=== PATIENT | female | born 1985 | race African-American/Black ===

== ENCOUNTER 2016-08-31 15:24 | Emergency (ER) | payer OTHER ==
[~2016-08-31] VITALS: Ht 160 cm; Wt 115.0 kg
[~2016-08-31 15:24] MED LIST: DEPO150I IM
[2016-08-31 15:26] VITALS: BP 122/66; PULSE 84; RESP 20; TEMP 99; O2SAT 98
--- NOTE | 2016-08-31 15:37 | PD ---
Physical Exam Time Seen by Provider: 15:33 Narrative 31yo F c/o whitish vag dc and vag discomfort x 4 days. +bilat pelvic pain. + urinary frequency. denies dysuria. LMP August 22. Patient seen in triage. VS reviewed. Awaiting bed placement. Data Data Last Documented VS Vital Signs Date Time Temp Pulse Resp B/P Pulse Ox O2 Delivery O2 Flow Rate FiO2 08/31/16 15:26 99.0 84 20 122/66 98 Room Air MDM Supervised Visit with [facility]: Duyen Santana Aug 31, 2016 15:37
--- NOTE | 2016-08-31 15:59 | PD ---
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 Patient states she is having a whitish discharge that is abnormal for her. Patient denies , but is not sure. Patient denies any new or recent sexual partners. She reports one sexual partner for the past 2 years. Patient reports mild dysuria. No fevers or chills. No chest pain or shortness of breath. Patient states she has mild bilateral pelvic pain. She does report a history of a small bowel obstruction. Patient denies any other complaints at this time. PFSH Past Medical History Blood Disorders: No Depression: Yes Diminished Hearing: No Musculoskeletal: Yes (CHRONIC BACK/NECK/LEFT KNEE/LEFT ANKLE PAIN S/P FALL 04/09) ?: Not : 7 Para: 6 Miscarriage: 0 : 0 Past Surgical History Abdominal Surgery: Yes (BOWEL OBSTRUCTION, part of colon removed) Social History Alcohol Use: No Tobacco Use: No Substance Use: No Allergies-Medications (Allergen,Severity, Reaction): Coded Allergies: Naproxen (Verified Allergy, Severe, Swelling, 08/31/16) Reported Meds & Prescriptions Reported Meds & Active Scripts Active Depo-Provera Inj (Medroxyprogesterone Inj) 150 Mg/Ml Inj 150 Mg IM Q90D Review of Systems Except as stated in HPI: all other systems reviewed are Neg Physical Exam Narrative GENERAL: Well-nourished, well-developed female patient, ambulatory. Afebrile. SKIN: Focused skin assessment warm/dry. HEAD: Normocephalic. Atraumatic. EYES: No scleral icterus. No injection or drainage. NECK: Supple, trachea midline. No JVD or lymphadenopathy. CARDIOVASCULAR: Regular rate and rhythm without murmurs, gallops, or rubs. RESPIRATORY: Breath sounds equal bilaterally. No accessory muscle use. Lungs sounds are clear to auscultation. GASTROINTESTINAL: Abdomen soft, non-tender, nondistended. No abdominal or pelvic pain to palpation. MUSCULOSKELETAL: No cyanosis, or edema. BACK: Nontender without obvious deformity. No CVA tenderness. GENITOURINARY: Normal external genitalia without lesions or erythema. Vaginal vault without blood, but with white drainage. Cervical os was closed without drainage. No cervical motion tenderness. Uterus nontender and nonenlarged. Bilateral adnexa nontender without masses. Exam was done with RN at bedside. Data Data Last Documented VS Vital Signs Date Time Temp Pulse Resp B/P Pulse Ox O2 Delivery O2 Flow Rate FiO2 08/31/16 15:26 99.0 84 20 122/66 98 Room Air Orders Gc And Chlamydia Pcr (08/31/16 15:53) Wet Prep Profile (08/31/16 15:53) Urinalysis - C+S If Indicated (08/31/16 15:53) Ed Urine Pregnancytest Poc (08/31/16 15:53) Labs Laboratory Tests Test 08/31/16 16:05 Urine Color YELLOW Urine Turbidity CLEAR Urine pH 6.5 Urine Specific [place] 1.015 Urine Protein NEG mg/dL Urine Glucose (UA) NEG mg/dL Urine Ketones NEG mg/dL Urine Occult Blood NEG Urine Nitrite NEG Urine Bilirubin NEG Urine Urobilinogen LESS THAN 2.0 MG/DL Urine Leukocyte Esterase NEG Urine RBC LESS THAN 1 /hpf Urine Squamous Epithelial 2 /hpf Cells Microscopic Urinalysis Comment CULT NOT INDICATED Clue Cells (Wet Prep) NONE SEEN Vaginal Trichomonas (Wet Prep) NONE SEEN Vaginal Yeast (Wet Prep) NONE SEEN MDM Medical Decision Making Medical Screen Exam Complete: Yes Emergency Medical Condition: Yes Medical Record Reviewed: Yes Differential Diagnosis BV versus vaginal candidiasis versus UA versus cervicitis Narrative Course 31-year-old female presents to the emergency department for evaluation of abnormal vaginal discharge and vaginal pain for 4 days. Patient gives verbal consent for pelvic exam. Swabs will be sent for chlamydia and gonorrhea as well as wet prep. UA and urine test are ordered and pending. Patient appears well and exam. No abdominal tenderness or pelvic tenderness to palpation. UA is negative. UPT is negative. Wet prep is negative for clue cells, Trichomonas, yeast. Patient denies any risk of STDs reporting one sexual partner for 2 years. 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 She is to return for any acute worsening of symptoms. The patient was discharged in stable condition with instructions, including return instructions and follow up instructions. Diagnosis Primary Impression: Vaginal discharge Referrals: [employer] Operator call for appointment Patient Instructions: General Instructions, Vaginal Discharge (ED) Additional Instructions: Follow up with gynecology. Return to the emergency department for any acute, worsening of symptoms. Med/Other Pt SpecificInfo: No Change to Meds Disposition: 01 DISCHARGE HOME Condition: Stable Dalia Escobar Aug 31, 2016 15:59
[2016-08-31 16:57] LABS: BLOOD, URINE NEG (NEG); GLUCOSE,URINE NEG (NEG); KETONE, URINE NEG (NEG); NITRITE,URINE NEG (NEG); PH, URINE 6.5 (5.0-8.5); SQUAMOUS EPITHELIAL CELL URINE 2 /hpf (0-5); URINE COLOR YELLOW (YELLW/STRAW)
[2016-08-31 17:09] LABS: COMMENT (UR) CULT NOT INDICATED; CULTURE IF INDICATED CULT NOT INDICATED
[2016-08-31 19:18] LABS: CHLAMYDIA PCR NOT DETECTED (NOT DETECT); NEISSERIA PCR NOT DETECTED (NOT DETECT)
== END 2016-08-31 18:11 | disposition home or self-care (01) ==
LOC: NEPD 15:24
DX: N89.8 Other specified noninflammatory disorders of vagina (principal); F32.9 Major depressive disorder, single episode, unspecified; K56.60 Unspecified intestinal obstruction
CPT/HCPCS: 81001; 84703; 87210; 87491; 87591; 99284

== ENCOUNTER 2016-11-02 11:03 | Emergency (ER) | payer OTHER ==
[~2016-11-02] VITALS: Ht 160 cm; Wt 65.0 kg
[2016-11-02 11:06] VITALS: BP 129/66; PULSE 95; RESP 16; TEMP 98.4; O2SAT 99
--- NOTE | 2016-11-02 11:37 | PD ---
HPI Chief Complaint: Flank/Kidney Pain Time Seen by Provider: 11:28 Travel History International Travel<30 days: No Contact w/Intl Traveler<30days: No Traveled to known affect area: No History of Present Illness HPI Patient comes in complaining of lower abdominal/pelvic pain described as crampy like in nature that began yesterday. Patient's pain got worse today and radiates to her back. Patient states feels similar to when she had a bowel obstruction previously. Patient states she had a bowel movement earlier today that was soft and not formed, which is unusual for her. Patient denies any recent antibiotic use, melena, or blood in the stool. Denies any chest pain, shortness breath, fevers, nausea, vomiting, , headache, change in urination, or vaginal discharge. PFSH Past Medical History Blood Disorders: No Depression: Yes Diminished Hearing: No Musculoskeletal: Yes (CHRONIC BACK/NECK/LEFT KNEE/LEFT ANKLE PAIN S/P FALL 04/09) ?: Not LMP: 09/29/16 : 7 Para: 7 Miscarriage: 0 : 0 Past Surgical History Abdominal Surgery: Yes (BOWEL OBSTRUCTION, part of colon removed) Social History Alcohol Use: Yes (OCC) Tobacco Use: No Substance Use: No Allergies-Medications (Allergen,Severity, Reaction): Coded Allergies: naproxen (Unverified Allergy, Severe, Swelling, 11/02/16) Reported Meds & Prescriptions Reported Meds & Active Scripts Active Doxycycline Hyclate 100 Mg Cap 100 Mg PO BID 14 Days Flagyl (Metronidazole) 500 Mg Tab 500 Mg PO BID 14 Days Review of Systems Except as stated in HPI: all other systems reviewed are Neg Physical Exam Narrative GENERAL: Well-developed, overly nourished, in no acute distress, and non-ill appearing. Talking on cellphone upon myself entering the room. SKIN: Focused skin assessment warm and dry. HEAD: Atraumatic. Normocephalic. EYES: Pupils equal and round. EOMI. No scleral icterus. No injection or drainage. ENT: No nasal bleeding or discharge. Mucous membranes pink and moist. NECK: Trachea midline. No JVD. Supple. No nuclear rigidity. CARDIOVASCULAR: Regular rate and rhythm. No murmur appreciated. RESPIRATORY: No accessory muscle use. No respiratory distress. Clear to auscultation. Breath sounds equal bilaterally. GASTROINTESTINAL: Abdomen soft, nondistended, and no guarding. Hepatic and splenic margins not palpable. Normal bowel sounds 4. No pulsatile mass. Patient reports tenderness throughout her lower abdomen. GENITOURINARY: Normal external genitalia without lesions or erythema. Vaginal vault without blood, but milky white drainage. Cervical os was closed without drainage. Cervical motion tenderness. Uterus nontender and nonenlarged. Bilateral adnexa nontender without masses. MUSCULOSKELETAL: No obvious deformities. No clubbing. No cyanosis. No edema. Full range of motion. NEUROLOGICAL: Awake and alert. No obvious cranial nerve deficits. Motor grossly within normal limits. Normal speech. PSYCHIATRIC: Appropriate mood and affect; insight and judgment normal. Data Data Last Documented VS Vital Signs Date Time Temp Pulse Resp B/P (MAP) Pulse Ox O2 Delivery O2 Flow Rate FiO2 11/02/16 14:56 63 18 136/83 (100) 98 Room Air 11/02/16 11:06 98.4 Orders Orders Complete Blood Count With Diff (11/02/16 11:33) Comprehensive Metabolic Panel (11/02/16 11:33) Lipase (11/02/16 11:33) Urinalysis - C+S If Indicated (11/02/16 11:33) Ct Abd/Pel W Iv Contrast(Rout) (11/02/16 11:33) Iv Access Insert/Monitor (11/02/16 11:33) Ecg Monitoring (11/02/16 11:33) Oximetry (11/02/16 11:33) Ondansetron Inj (Zofran Inj) (11/02/16 11:45) Sodium Chloride 0.9% Flush (Ns Flush) (11/02/16 11:45) Ed Urine Pregnancytest Poc (11/02/16 11:33) Sodium Chlor 0.9% 1000 Ml Inj (Ns 1000 M (11/02/16 13:00) Iohexol 350 Inj (Omnipaque 350 Inj) (11/02/16 13:42) Gc And Chlamydia Pcr (11/02/16 14:13) Wet Prep Profile (11/02/16 14:13) Ceftriaxone Inj (Rocephin Inj) (11/02/16 14:30) Labs Laboratory Tests Test 11/02/16 12:00 11/02/16 14:10 White Blood Count 6.6 TH/MM3 Red Blood Count 4.60 MIL/MM3 Hemoglobin 12.5 GM/DL Hematocrit 37.8 % Mean Corpuscular Volume 82.1 FL Mean Corpuscular Hemoglobin 27.1 PG Mean Corpuscular Hemoglobin Concent 33.0 % Red Cell Distribution Width 13.6 % Platelet Count 320 TH/MM3 Mean Platelet Volume 8.0 FL Neutrophils (%) (Auto) 46.8 % Lymphocytes (%) (Auto) 38.7 % Monocytes (%) (Auto) 10.9 % Eosinophils (%) (Auto) 3.2 % Basophils (%) (Auto) 0.4 % Neutrophils # (Auto) 3.1 TH/MM3 Lymphocytes # (Auto) 2.6 TH/MM3 Monocytes # (Auto) 0.7 TH/MM3 Eosinophils # (Auto) 0.2 TH/MM3 Basophils # (Auto) 0.0 TH/MM3 CBC Comment DIFF FINAL Differential Comment Urine Color YELLOW Urine Turbidity HAZY Urine pH 5.0 Urine Specific [place] 1.015 Urine Protein NEG mg/dL Urine Glucose (UA) NEG mg/dL Urine Ketones NEG mg/dL Urine Occult Blood NEG Urine Nitrite NEG Urine Bilirubin NEG Urine Urobilinogen LESS THAN 2.0 MG/DL Urine Leukocyte Esterase NEG Urine RBC 2 /hpf Urine WBC 1 /hpf Urine Squamous Epithelial Cells 7 /hpf Urine Bacteria RARE /hpf Urine Mucus FEW /lpf Microscopic Urinalysis Comment CULT NOT INDICATED Blood Urea Nitrogen 9 MG/DL Creatinine 0.90 MG/DL Random Glucose 84 MG/DL Total Protein 7.7 GM/DL Albumin 3.5 GM/DL Calcium Level 8.9 MG/DL Alkaline Phosphatase 59 U/L Aspartate Amino Transf (AST/SGOT) 9 U/L Alanine Aminotransferase (ALT/SGPT) 15 U/L Total Bilirubin 0.7 MG/DL Sodium Level 139 MEQ/L Potassium Level 4.0 MEQ/L Chloride Level 105 MEQ/L Carbon Dioxide Level 25.4 MEQ/L Anion Gap 9 MEQ/L Estimat Glomerular Filtration Rate 87 ML/MIN Lipase 83 U/L Clue Cells (Wet Prep) NONE SEEN Vaginal Trichomonas (Wet Prep) NONE SEEN Vaginal Yeast (Wet Prep) NONE SEEN MDM Medical Decision Making Medical Screen Exam Complete: Yes Emergency Medical Condition: Yes Interpretation(s) CT abdomen and pelvis read by the radiologist shows: Essentially unremarkable study. Differential Diagnosis The history of present illness, appendicitis, obstruction, ileus, diverticulitis , ovarian cyst, PID, other Narrative Course The patient presented with lower abdominal/pelvic pain and the patient was accordingly mildly tender. The patient otherwise appeared comfortable and hydrated. Urine analysis revealed no evidence of . Evaluation revealed clinical suspicion for cervicitis/PID. There was no evidence of TOA at this time. Findings and suspicion were discussed with the patient and instructed to have sexual partners checked and treated. Evaluation revealed no clinical evidence or picture of acute ovarian torsion at this time. The patient appears comfortable and no distress and no vomiting. The patient is to return if worsens , pain worsens or changes, develop persistent fever, inability to tolerate fluids with or without vomiting, unable to establish follow up or as needed. There was no evidence of an acute, surgical abdomen at this time. There was no clinical evidence to support cholecystitis/cholelithiasis, pancreatitis, perforation of gastric ulcer, colitis, diverticulitis, obstruction, volvulus, early appendicitis, or hernial incarceration or strangulation at this time. There was no evidence to support vascular pathology such as AAA, mesenteric ischemia, nor GIB. There was also no clinical evidence by history, exam or risk factors to suggest atypical presentation of cardiac disease such as ACS, AMI or atypical angina.. The patient agreed with plan of care and management. The patient was instructed to follow up with their physician and or [facility] health clinic and screening (hepatitis, syphilis, HIV etc.). Patient agreed with plan. Patient in no obvious distress upon re-evaluation. All pertinent laboratory/ Radiology result(s) discussed with patient. Patient was asked if they wanted to speak to my attending, which the patient did not wish to do at this time. Any questions/concerns in reference to patient diagnosis/condition discussed and clarified prior to patient's discharge. Reinforced sheer importance of close follow up with patient's primary physician or primary care clinic and/or health Department. Instructed patient to return to ED immediately, if symptoms return/ worsen. Pt showed understanding of above instructions. Further instructions and recommendations were detailed in discharge paperwork. Pt ambulated without difficulty out of ED at discharge. Diagnosis Primary Impression: PID (acute pelvic inflammatory disease) Referrals: [facility] Dept. Patient Instructions: General Instructions, Pelvic Inflammatory Disease (ED) Additional Instructions: Follow-up with your primary care physician and/or health Department for additional STD testing. Notify all sexual partners have them tested and treated. Do not have intercourse until all sexual partners tested and treated. Practice safe sex to prevent further STDs and/or unwanted pregnancies. If you would like a copy of your gonorrhea and chlamydia results bring a photo ID to medical records in 24-48 hours to get a copy. Return to the emergency department if symptoms get worse. Med/Other Pt SpecificInfo: Prescription(s) given Scripts Doxycycline Hyclate (Doxycycline Hyclate) 100 Mg Cap 100 MG PO BID for Infection for 14 Days, CAP 0 Refills Prov: Anish Walters MD 11/02/16 Metronidazole (Flagyl) 500 Mg Tab 500 MG PO BID for Infection for 14 Days, TAB 0 Refills Prov: Anish Wlaters MD 11/02/16 Disposition: 01 DISCHARGE HOME Condition: Magdiel Bhat Nov 02, 2016 11:37
[2016-11-02] MEDS ORDERED: SODIUM CHLORIDE 0.9% FLUSH 10 ML FLUSH IV FLUSH PRN (11:45)
[2016-11-02] MEDS ORDERED: ONDANSETRON HCL 4 MG/2 ML VIAL IVP ONE (11:45)
[2016-11-02 12:22] LABS: AUTOMATED NEUTROPHIL # 3.1 TH/MM3 (1.8-7.7); BASOPHIL % 0.4 % (0.0-2.0); EOSINOPHIL # 0.2 TH/MM3 (0-0.4); EOSINOPHIL % 3.2 % (0.0-4.0); HEMATOCRIT 37.8 % (35.0-46.0); HEMO FLAGS DIFF FINAL; LYMPH % 38.7 % (9.0-44.0); LYMPHOCYTE # 2.6 TH/MM3 (1.0-4.8); MEAN CELL VOLUME 82.1 FL (80.0-100.0); MEAN CORPUSCULAR HEMOGLOBIN 27.1 PG (27.0-34.0); MONO % 10.9 % (0.0-8.0); NEUT % 46.8 % (16.0-70.0); PLATELET COUNT 320 TH/MM3 (150-450); RED CELL DISTRIBUTION WIDTH 13.6 % (11.6-17.2); WHITE BLOOD COUNT 6.6 TH/MM3 (4.0-11.0)
[2016-11-02 12:31] LABS: BACTERIA, URINE RARE /hpf; BLOOD, URINE NEG (NEG); COMMENT (UR) CULT NOT INDICATED; CULTURE IF INDICATED CULT NOT INDICATED; GLUCOSE,URINE NEG (NEG); KETONE, URINE NEG (NEG); MUCUS URINE FEW /lpf (OCC); NITRITE,URINE NEG (NEG); SQUAMOUS EPITHELIAL CELL URINE 7 /hpf (0-5); URINE COLOR YELLOW (YELLW/STRAW)
[2016-11-02 12:37] LABS: ANION GAP 9 MEQ/L (5-15); AST (GOT) 9 U/L (15-37); BICARBONATE 25.4 MEQ/L (21.0-32.0); BLOOD UREA NITROGEN 9 MG/DL (7-18); CHLORIDE 105 MEQ/L (98-107); GLOMERULAR FILTRATION RATE 87 ML/MIN (>89); SODIUM (NA) 139 MEQ/L (136-145)
[2016-11-02 12:40] LABS: ALKALINE PHOSPHATASE 59 U/L (45-117); ALT (GPT) 15 U/L (10-53); TOTAL BILIRUBIN ADULT 0.7 MG/DL (0.2-1.0)
[2016-11-02] MEDS ORDERED: SODIUM CHLOR 0.9% 1000 ML INJ 1,000 ML IV ONE (13:00)
[2016-11-02] MEDS ORDERED: IOHEXOL 350 MG/ML 10 ML VIAL (for RAD DIAG) IVCONTRAST ONE (13:42)
--- NOTE | 2016-11-02 14:08 | RADRPT ---
EXAM DATE/TIME: 11/02/2016 13:18 [place] COMPARISON: No previous studies available for comparison. INDICATIONS : Left flank pain. IV CONTRAST: 92 cc Omnipaque 350 (iohexol) IV ORAL CONTRAST: No oral contrast ingested. RADIATION DOSE: 15.45 CTDIvol (mGy) MEDICAL HISTORY : History of bowel obstruction. SURGICAL HISTORY : Partial bowel removed. ENCOUNTER: Initial ACUITY: 1 day PAIN SCALE: 0/10 LOCATION: Left flank TECHNIQUE: Volumetric scanning of the abdomen and pelvis was performed. Using automated exposure control and ad justment of the mA and/or kV according to patient size, radiation dose was kept as low as reasonably achievable to obtain optimal diagnostic quality images. DICOM format image data is available electro nically for review and comparison. FINDINGS: CT Abdomen: The liver, spleen, pancreas, kidneys, adrenals are unremarkable. There is no evidence for any appreciable pathological adenopathy, free fluid, or bowel obstruction. There is no evidence for any stones in the kidneys or the course of the ureters on either side. There is no hydronephrosis. CT pelvis: There is no evidence for mass, abscess formation, or any significant adenopathy within the pelvis. Approximate 2 cm cyst is present in the left ovary. The appendix appears intact without defi nite signs of appendicitis. CONCLUSION: Essentially unremarkable study. Tasia Pandya MD on November 02, 2016 at 14:04 Board Certified Radiologist. This report was verified electronically.
[2016-11-02] MEDS ORDERED: DOXY100C PO (14:23)
[2016-11-02] MEDS ORDERED: METR-1 PO (14:23)
[2016-11-02] MEDS ORDERED: cefTRIAXone INJ 1,000 MG in SODIUM CHLORIDE 0.9% INJ 100 ML IV ONE (14:30)
[2016-11-02 14:56] VITALS: BP 136/83; PULSE 63; RESP 18; O2SAT 98
[2016-11-02 16:25] LABS: CHLAMYDIA PCR NOT DETECTED (NOT DETECT); NEISSERIA PCR NOT DETECTED (NOT DETECT)
== END 2016-11-02 15:25 | disposition home or self-care (01) ==
LOC: NEPD 11:03
DX: N73.0 Acute parametritis and pelvic cellulitis (principal)
CPT/HCPCS: 74177; 80053; 81001; 83690; 84703; 85025; 87210; 87491; 87591; 96361; 96365; 96375; 99285; J0696; J2405; J7030; Q9967